=== PATIENT | female | born 1975 | race Two or more races ===

== ENCOUNTER 2020-08-19 10:19 | Outpatient (CLI) | payer OTHER ==
[2020-08-19 19:17] LABS: SARS-CoV-2 PCR by NAA Not Detected (NotDetected)
== END 2020-08-19 10:20 | disposition home or self-care (01) ==
LOC: CSHLAB 10:19
PROVIDERS: ATTEND Family Medicine
DX: Z20.822 Contact with and (suspected) exposure to COVID-19 (principal)
CPT/HCPCS: 87635; U0003; U0005

== ENCOUNTER 2020-08-24 05:39 | Inpatient (IN) | payer MEDICAID, OTHER, SELFPAY ==
[~2020-08-24 05:39] MED LIST: Bicitra 30 ML UDCUP PO PRN; CEFAZOLIN 2 GM in Premix Bag 1 BAG IVPB SCH; Famotidine/PF 20 mg/2ml Vial SLOW IVP PRN; Ondansetron PF 4 MG/2 ML Vial IVP PRN; Promethazine HCl 25 MG/ML VIAL IM PRN; hydrALAZINE 20 MG/ML VIAL SLOW IVP PRN
[2020-08-24] MEDS: Lactated Ringer's 1,000 ML IV SCH ×3 (06:10→12:29)
[2020-08-24 06:28] VITALS: BMI 26.2
[2020-08-24 06:32] LABS: Hemoglobin 12.5 g/dL (12.0-15.5); Mean Corpuscular Hemoglobin 32.5 pg (27.0-33.0); Mean Corpuscular Volume 95.6 fl (81.6-98.3); Platelet Count 133 10x3/uL (150-450); RBC Distribution Width 13.2 % (11.5-14.5); Red Blood Cell (RBC) Count 3.85 10x6/uL (3.90-5.03); White Blood Cell (WBC) Count 8.1 10x3/uL (3.5-10.5)
[2020-08-24] MEDS ORDERED: Morphine PF 10 MG/10 ML VIAL ONE (07:09)
[2020-08-24] MEDS ORDERED: ePHEDrine Sulfate 50 MG/10 ML VIAL ONE (07:10)
[2020-08-24] MEDS ORDERED: Oxytocin 10 UNITS/ML VIAL ONE (07:10)
[2020-08-24] MEDS ORDERED: Phenylephrine 10 MG/ML VIAL ONE (07:10)
[2020-08-24] MEDS ORDERED: Dexamethasone 4 mg/ml Vial ONE (07:10)
[2020-08-24] MEDS ORDERED: Ondansetron PF 4 MG/2 ML Vial ONE (07:10)
[2020-08-24] MEDS ORDERED: Ketorolac Tromethamine 30 MG/ML VIAL ONE (07:10)
[2020-08-24] MEDS ORDERED: PROPOFOL 20 ML ONE (07:59)
[2020-08-24] MEDS ORDERED: Methylergonovine 0.2 MG/ML VIAL ONE (08:26)
[2020-08-24] MEDS ORDERED: Misoprostol 200 MCG TAB ONE (08:26)
[2020-08-24] MEDS ORDERED: Carboprost 250 MCG/ML AMP ONE (08:26)
[2020-08-24] MEDS ORDERED: Erythromycin Base 0.5% Oint 1 GM TUBE ONE (08:40)
[2020-08-24] MEDS ORDERED: Phytonadione Neonatal 1 MG/0.5 ML AMP ONE (08:40)
[2020-08-24 08:51] LABS: Hep B Surf Ag Non-Reactive S/CO (NonReactive); Syphilis Antibody Nonreactive (Nonreactive); Syphilis Antibody Index 0.04 S/CO (<1.00 Non-Reactive)
[2020-08-24 09:03] LABS: HBSAg Index 0.13 S/CO (0-0.99)
[2020-08-24] MEDS ORDERED: Methylergonovine 0.2 MG/ML VIAL IM SCH (09:30)
[2020-08-24] MEDS ORDERED: Promethazine HCl 25 MG/ML VIAL IM PRN (09:47)
[2020-08-24] MEDS ORDERED: Promethazine HCl 25 MG/ML VIAL SLOW IVP PRN (09:47)
[2020-08-24] MEDS ORDERED: Morphine 4 MG/ML VIAL SLOW IVP PRN (09:47)
[2020-08-24] MEDS ORDERED: Meperidine HCl/PF 25 MG/ML VIAL SLOW IVP PRN (09:47)
[2020-08-24] MEDS ORDERED: Ondansetron HCl/PF 4 MG/2 ML Vial IVP PRN (09:47)
[2020-08-24] MEDS ORDERED: Morphine Sulfate 2 MG/ML SYRINGE SLOW IVP PRN (09:47)
[2020-08-24] MEDS ORDERED: Morphine 4 MG/ML VIAL ONE (11:21)
[2020-08-24] MEDS ORDERED: Ondansetron PF 4 MG/2 ML Vial IVP PRN (12:19)
[2020-08-24] MEDS ORDERED: Acetaminophen 325 MG TAB PO PRN (12:19)
[2020-08-24] MEDS ORDERED: Bisacodyl 10 MG SUPP PR PRN (12:19)
[2020-08-24] MEDS ORDERED: Prenatal Vitamin 1 TAB PO SCH ×2 (12:19→13:15)
[2020-08-24] MEDS ORDERED: diphenhydrAMINE 25 MG CAP PO PRN (12:19)
[2020-08-24] MEDS ORDERED: Lanolin Ointment 7 GM TUBE TOP PRN (12:19)
[2020-08-24] MEDS ORDERED: hydrALAZINE 20 MG/ML VIAL SLOW IVP PRN (12:19)
[2020-08-24] MEDS ORDERED: Ferrous Sulfate 325 MG TAB PO SCH ×3 (13:15→21:00)
[2020-08-24] MEDS ORDERED: Docusate Calcium (SURFAK) 240 MG CAP PO SCH (13:15)
[2020-08-24] MEDS ORDERED: Ibuprofen 800 MG TAB PO SCH (14:00)
[2020-08-24] MEDS ORDERED: Ketorolac Tromethamine 30 MG/ML VIAL IVP PRN (16:00)
[2020-08-24] MEDS ORDERED: Morphine 2 MG/ML VIAL SLOW IVP PRN (17:31)
[2020-08-24] MEDS: Docusate Calcium (SURFAK) 240 MG CAP PO SCH (21:05)
[2020-08-25] MEDS: HYDROcodone/Acetaminophen 5/325 mg Tablet PO PRN ×4 (04:01→20:44)
[2020-08-25 07:43] LABS: Hemoglobin 9.2 g/dL (12.0-15.5); Mean Corpuscular HGB CONC 33.3 g/dL (32.0-36.0); Mean Corpuscular Hemoglobin 32.4 pg (27.0-33.0); Mean Corpuscular Volume 97.2 fl (81.6-98.3); Mean Platelet Volume 12.3 fl (7.4-10.4); Platelet Count 114 10x3/uL (150-450); RBC Distribution Width 13.4 % (11.5-14.5); Red Blood Cell (RBC) Count 2.84 10x6/uL (3.90-5.03)
[2020-08-25] MEDS: Prenatal Vitamin 1 TAB PO SCH (08:06)
[2020-08-25] MEDS: Docusate Calcium (SURFAK) 240 MG CAP PO SCH ×2 (08:06→22:29)
[2020-08-25] MEDS: Simethicone Chewable 80 MG TAB PO PRN ×2 (08:07→14:49)
[2020-08-25] MEDS: Ibuprofen 800 MG TAB PO SCH ×3 (08:07→22:29)
[2020-08-25 14:34] LABS: Hemoglobin 8.8 g/dL (12.0-15.5); Mean Corpuscular HGB CONC 33.5 g/dL (32.0-36.0); Mean Corpuscular Hemoglobin 32.6 pg (27.0-33.0); Mean Corpuscular Volume 97.4 fl (81.6-98.3); Platelet Count 111 10x3/uL (150-450); RBC Distribution Width 13.5 % (11.5-14.5); White Blood Cell (WBC) Count 9.8 10x3/uL (3.5-10.5)
[2020-08-25] MEDS: Ferrous Sulfate 325 MG TAB PO SCH (14:50)
[2020-08-26] MEDS: HYDROcodone/Acetaminophen 5/325 mg Tablet PO PRN ×4 (04:45→23:32)
[2020-08-26] MEDS ORDERED: Ibuprofen 800 MG TAB PO SCH (06:00)
[2020-08-26 06:44] LABS: Hemoglobin 9.1 g/dL (12.0-15.5); Mean Corpuscular HGB CONC 33.3 g/dL (32.0-36.0); Mean Corpuscular Hemoglobin 32.7 pg (27.0-33.0); Mean Corpuscular Volume 98.2 fl (81.6-98.3); Mean Platelet Volume 11.7 fl (7.4-10.4); Platelet Count 125 10x3/uL (150-450); RBC Distribution Width 13.7 % (11.5-14.5); Red Blood Cell (RBC) Count 2.78 10x6/uL (3.90-5.03); White Blood Cell (WBC) Count 10.2 10x3/uL (3.5-10.5)
[2020-08-26] MEDS: Ibuprofen 800 MG TAB PO SCH ×3 (06:46→19:44)
[2020-08-26] MEDS ORDERED: Aluminum & Magnesium Hydroxide 60 ML, Lidocaine 2% Viscous Solution 30 ML, diphenhydrAM... SSW PRN (07:26)
[2020-08-26] MEDS: Simethicone Chewable 80 MG TAB PO PRN (08:47)
[2020-08-26] MEDS: Prenatal Vitamin 1 TAB PO SCH (08:47)
[2020-08-26] MEDS: Docusate Calcium (SURFAK) 240 MG CAP PO SCH ×2 (08:47→19:45)
[2020-08-26] MEDS ORDERED: Chloraseptic Spray 180 ml Bottle PO PRN (09:19)
[2020-08-26] MEDS ORDERED: Cepastat Lozenges 1 LOZ PO PRN (09:19)
[2020-08-27] MEDS: HYDROcodone/Acetaminophen 5/325 mg Tablet PO PRN ×2 (03:44→13:55)
[2020-08-27] MEDS: Ibuprofen 800 MG TAB PO SCH ×2 (05:16→13:51)
[2020-08-27] MEDS: Ferrous Sulfate 325 MG TAB PO SCH (08:02)
[2020-08-27] MEDS: Prenatal Vitamin 1 TAB PO SCH (08:02)
[2020-08-27] MEDS: Docusate Calcium (SURFAK) 240 MG CAP PO SCH (08:02)
[2020-08-27 10:03] VITALS: BP 120/63; TEMP 98.8
== END 2020-08-27 14:40 | disposition home or self-care (01) | DRG 787 ==
LOC: CSHLD 05:39 → CSHPP 11:45
PROVIDERS: ADMIT Family Medicine; ATTEND Family Medicine
PROC: 10D00Z1 Extraction of Products of Conception, Low, Open Approach (ICD-10-PCS; principal; 2020-08-24)
DX: O34.211 Maternal care for low transverse scar from previous cesarean delivery (principal); D62 Acute posthemorrhagic anemia; Z20.822 Contact with and (suspected) exposure to COVID-19; Z3A.39 39 weeks gestation of pregnancy; Z37.0 Single live birth; Z79.899 Other long term (current) drug therapy; Z79.82 Long term (current) use of aspirin; O24.420 Gestational diabetes mellitus in childbirth, diet controlled; O62.2 Other uterine inertia; O90.81 Anemia of the puerperium
CPT/HCPCS: 36415; 36416; 36430; 51702; 85027; 86780; 86850; 86900; 86901; 87340; J0690; J1100; J1885; J2210; J2270; J2274; J2370; J2405; J2704; Q0163